=== PATIENT | male | born 1990 | race Caucasian/White ===

== ENCOUNTER 2020-05-19 21:32 | Emergency (ER) | payer BC, SELFPAY ==
[2020-05-19 21:34] VITALS: BP 118/77; PULSE 79; RESP 20; TEMP 36.6; O2SAT 100; BMI 29.4
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
[2020-05-19] MEDS: fentaNYL 100 MCG/2 ML Ampul 50 MCG IV ×2 (21:53→23:13)
[2020-05-19] MEDS: Ondansetron 4 MG/2 ML Vial IV (21:53)
[2020-05-19] MEDS: 0.9% Normal Saline 1,000 ML 999 ML IV (21:54)
[2020-05-19] MEDS: Diphth,Pertuss(Acell),Tet Vac 0.5 ML Vial IM (21:54)
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
[2020-05-19 22:16] LABS: Absolute Lymphocyte Count 3.19 X10^3/uL (0.83-4.51); Absolute Neutrophil Count 5.6 X10^3/uL (2.0-7.7); Basophil# 0.04 X10^3/uL; Basophil% 0.4 % (0-1); Eosinophil# 0.04 X10^3/uL; Eosinophils% 0.4 % (0-5); Hematocrit 47.2 % (40-54); Hemoglobin 15.4 g/dL (13.0-16.5); Lymphocyte # 3.19 X10^3/ul (4.0); Lymphocyte % 33.5 % (19-41); Mean Corp Hgb Conc 32.6 g/dL (32-36); Mean Corpuscular Hgb 30.3 pg (27.0-32.0); Mean Corpuscular Volume 92.7 fL (80-94); Mean Platelet Vol. 9.9 fl (6.2-12.0); Monocyte% 6.3 % (0-10); NRBC Flagged by Analyzer 0 % (0-5); Neutrophil # 5.59 X10^3/uL (2.7-7.7); Neutrophil % 58.9 % (47-70); Platelet Count 331 K/mm3 (150-450); Red Blood Count 5.09 M/mm3 (4.6-6.2); White Blood Count 9.5 K/mm3 (4.4-11.0)
[2020-05-19 22:30] LABS: Anion Gap 9 (5-15); BUN 13 mg/dL (7-18); BUN/Creat Ratio 12.1 RATIO (10-20); Calcium,Total 8.4 mg/dL (8.5-10.1); Chloride 112 mmol/L (98-107); Creatinine, Serum 1.07 mg/dL (0.70-1.30); EST Glomerular Filtration Rate 86 mL/min (>60); Est Glom Filt Rate - Afr Amer 104 mL/min (>60); Estimated Creatinine Clearance 109.79 ml/min; Glucose 98 mg/dL (74-106); Sodium Level 141 mmol/L (136-145)
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
[2020-05-19 22:39] LABS: Prothrombin Time (Protime)PT. 12.2 SECONDS (11.7-14.9)
[2020-05-19 22:44] VITALS: BP 122/74
[2020-05-19 23:16] VITALS: BP 111/87; PULSE 106; RESP 16; O2SAT 98
[2020-05-19] MEDS: oxyCODONE 5 MG Tablet PO (23:59)
[2020-05-20 00:21] VITALS: RESP 16
--- NOTE | 2020-05-23 15:11 | ED.RN ---
Pt called to verify follow up doctor. Gave number to [facility] per discharge orders.
== END 2020-05-20 00:22 | disposition home or self-care (01) ==
PROVIDERS: Emergency Provider Student in an Organized Health Care Education/Training Program
DX: S20.219A Contusion of unspecified front wall of thorax, initial encounter (principal); S30.1XXA Contusion of abdominal wall, initial encounter; S09.90XA Unspecified injury of head, initial encounter; S82.892A Other fracture of left lower leg, initial encounter for closed fracture; F10.129 Alcohol abuse with intoxication, unspecified; V48.5XXA Car driver injured in noncollision transport accident in traffic accident, initial encounter
CPT/HCPCS: 70450; 71260; 72125; 72170; 73552; 73610; 74177; 80048; 80320; 85025; 85610; 90715; 93005; 96372; 96374; 96375; 96376; 99285; J7030; Q9967; A4216; G0480; J2405